=== PATIENT | male | born 1950 | race Caucasian/White ===

== ENCOUNTER 2022-05-21 14:48 | Day surgery (SDC) | payer OTHER ==
[2022-05-21 15:37] LABS: BASOPHILS # (AUTO) 0.1 X10'3 (0-0.2); BASOPHILS % (AUTO) 1.1 % (0-1); EOSINOPHILS # (AUTO) 0.1 X10'3 (0-0.9); EOSINOPHILS % (AUTO) 1.9 % (0-6); HEMATOCRIT 31.6 % (42.0-52.0); HEMOGLOBIN 10.6 g/dl (14.0-17.9); LYMPHOCYTES # (AUTO) 1.4 X10'3 (1.1-4.8); MEAN CORPUSCULAR HEMOGLOBIN 28.4 PG (27.0-31.0); MEAN CORPUSCULAR HGB CONC 33.6 g/dL (33.0-36.5); MEAN CORPUSCULAR VOLUME 84.4 FL (78-98); MEAN PLATELET VOLUME 8.3 FL (7.4-10.4); MONOCYTES # (AUTO) 0.5 X10'3 (0-0.9); MONOCYTES % (AUTO) 9.1 % (2-12); NEUTROPHILS # (AUTO) 3.6 X10'3 (1.8-7.7); NEUTROPHILS % (AUTO) 62.9 % (42-75); PLATELET COUNT 161 X10'3 (140-440); RED BLOOD COUNT 3.74 X10'6 (4.70-6.10); WHITE BLOOD COUNT 5.7 X10'3 (4.5-11.0)
[2022-05-21 15:47] LABS: ALBUMIN 3.6 G/DL (3.4-5.0); ANION GAP 8 (8-16); BLOOD UREA NITROGEN 23 MG/DL (7-18); BUN/CREATININE RATIO 9.7 (5.4-32.0); CALCIUM 8.5 MG/DL (8.5-10.1); CHLORIDE 106 MMOL/L (99-107); CREATININE 2.38 MG/DL (0.60-1.10); GLUCOSE 91 MG/DL (70-104); POTASSIUM 3.6 MMOL/L (3.5-5.1); SODIUM 144 MMOL/L (135-145); TOTAL CARBON DIOXIDE 30.1 MMOL/L (24-32); eGFR 27 ML/MIN
[2022-05-21 15:54] LABS: APTT 50 SECONDS (22-32)
== END 2022-05-21 23:59 | disposition home or self-care (01) ==
LOC: CANPRESDC → SSTAY O 14:48
PROVIDERS: ATTEND Student in an Organized Health Care Education/Training Program
DX: I48.92 Unspecified atrial flutter (principal); Z53.8 Procedure and treatment not carried out for other reasons; I11.0 Hypertensive heart disease with heart failure; I25.810 Atherosclerosis of coronary artery bypass graft(s) without angina pectoris; I25.5 Ischemic cardiomyopathy; I50.9 Heart failure, unspecified; Z79.899 Other long term (current) drug therapy
CPT/HCPCS: 36415; 80048; 85025; 85610; 85730

== ENCOUNTER 2025-04-27 09:39 | Day surgery (SDC) | payer MEDICARE ==
[~2025-04-27] VITALS: Ht 188 cm; Wt 83.4 kg
[2025-04-27] MEDS ORDERED: METO-411 PO (10:04)
[2025-04-27] MEDS ORDERED: ROSU20TA98 PO (10:04)
[2025-04-27] MEDS ORDERED: FURO40TA4 PO (10:04)
[2025-04-27] MEDS ORDERED: LOSA50TA64 PO (10:04)
[2025-04-27] MEDS ORDERED: TAMS-55 (10:04)
[2025-04-27 10:05] VITALS: BP 130/74; PULSE 73; RESP 14; TEMP 97.8; O2SAT 97
[2025-04-27] MEDS ORDERED: CYAN250014 PO (10:11)
[2025-04-27] MEDS ORDERED: SPIR25TA PO (10:11)
[2025-04-27] MEDS ORDERED: WARF6TAB49 PO (10:11)
[2025-04-27] MEDS ORDERED: CHOL100040 PO (10:11)
[2025-04-27] MEDS ORDERED: ZINC50TA60 (10:11)
[2025-04-27] MEDS ORDERED: ASCO100T9 (10:11)
[2025-04-27] MEDS ORDERED: MAGN400C PO (10:11)
[2025-04-27] MEDS ORDERED: Iron PO (10:11)
[2025-04-27] MEDS ORDERED: RED500CA PO (10:11)
[2025-04-27] MEDS ORDERED: normal saline 1000ml 1,000 ML IV SCH (10:30)
[2025-04-27] MEDS ORDERED: fentaNYL/PF 50MCG/1 ML 2ML syringe ONE (12:19)
[2025-04-27] MEDS ORDERED: midazolam 1 mg/ML 2ml injection ONE ×2 (12:19→13:08)
[2025-04-27 13:45] VITALS: BP 138/68; PULSE 59; RESP 14; O2SAT 96
[2025-04-27 14:00] VITALS: BP 122/66; PULSE 57; RESP 15; O2SAT 97
[2025-04-27 14:15] VITALS: BP 122/73; PULSE 57; RESP 14; O2SAT 98
[2025-04-27 14:30] VITALS: BP 119/69; PULSE 61; RESP 12; O2SAT 99
--- NOTE | 2025-04-28 06:15 | CARDIOLOGY REPORT ---
APPROVED REPORT EXAM: Focused, limited transesophageal echocardiogram with color flow Doppler and 3D imaging. Patient Location: [facility] [employer] [employer] [facility] Blood Pressure: 152/86 mmHg Heart Rate: 68 bpm Rhythm: SINUS Indications MITRAL REGURGITATION CONGESTIVE HEART FAILURE CARDIOMYOPATHY Health Evaluator: Nona Ascencio MD / CATIA probe passed by: Silvino Ascencio MD Previous echo: 03/18/25 CVC (EF 30%, sev LAE, mod to sev MR, mild TR) LEFT VENTRICLE Normal LV size and wall thickness. Overall systolic function is severely reduced. LVEF is 30%. RIGHT VENTRICLE RV appears normal in size with reduced systolic function. ATRIA LA appears severely dilated. AORTIC VALVE Probably trileaflet AV appears mildly sclerotic without stenosis or insufficiency. MITRAL VALVE MV appears structurally normal with mild annular calcification and no stenosis. Moderate multijet reg urgitation. PERICARDIUM Normal pericardium. No effusion. CONCLUSION Normal LV size and wall thickness. Overall systolic function is severely reduced. LVEF is 30%. RV ilene ears normal in size with reduced systolic function. LA appears severely dilated. Probably trileaflet AV appears mildly sclerotic without stenosis or insufficiency. MV appears structurally normal with mi ld annular calcification and no stenosis. Moderate multijet regurgitation. Normal pericardium. No eff usion. Conclusion Normal LV size and wall thickness. Overall systolic function is severely reduced. LVEF is 30%. RV appears normal in size with reduced systolic function. LA appears severely dilated. Probably trileaflet AV appears mildly sclerotic without stenosis or insufficiency. MV appears structurally normal with mild annular calcification and no stenosis. Moderate multijet reg urgitation. Normal pericardium. No effusion.
== END 2025-04-27 14:40 | disposition home or self-care (01) ==
LOC: SSTAY O 09:39
PROVIDERS: ATTEND Student in an Organized Health Care Education/Training Program
DX: I34.0 Nonrheumatic mitral (valve) insufficiency (principal); I48.92 Unspecified atrial flutter; I11.0 Hypertensive heart disease with heart failure; I50.9 Heart failure, unspecified; I25.10 Atherosclerotic heart disease of native coronary artery without angina pectoris; E78.00 Pure hypercholesterolemia, unspecified; G47.30 Sleep apnea, unspecified; I42.9 Cardiomyopathy, unspecified; G47.33 Obstructive sleep apnea (adult) (pediatric); I73.9 Peripheral vascular disease, unspecified; Z86.718 Personal history of other venous thrombosis and embolism; Z79.01 Long term (current) use of anticoagulants; Z79.890 Hormone replacement therapy; Z79.899 Other long term (current) drug therapy; Z95.1 Presence of aortocoronary bypass graft; Z88.8 Allergy status to other drugs, medicaments and biological substances; Z88.5 Allergy status to narcotic agent
CPT/HCPCS: 76376; 93312; 93325; J2250; J3010; J7030; 99152